=== PATIENT | female | born 2000 | race American Indian/Alaskan Native ===

== ENCOUNTER 2019-07-21 23:54 | Inpatient (IN) | payer OTHER ==
--- NOTE | 2019-07-22 00:03 | Emergency Department Report ---
ED Psych HPI - General Stated Complaint: SI/MH Time Seen by Provider: 07/21/19 23:59 Source: patient, EMS Mode of arrival: Stretcher Limitations: No Limitations - History of Present Illness Initial Comments: Patient is a 19-year-old female that presents emergency room with complaints of suicidal ideation and attempt by overdose. She states she started taking pills at 9 AM this morning. patient states she took 20 tablets of Aleve, 20 tablets of 500 mg ibuprofen, half a bottle of NyQuil, handful of Comet bathroom tube cleaner, she injected insulin unknown amount of units, and she cut her wrist. Patient states she was depressed and she wanted to end her life. Patient states she is having some nausea. Patient denies any other pain. Patient states she is depressed and anxious. Patient denies homicidal ideations. Patient denies hallucinations. MD Complaint: suicidal ideation, feels depressed, other -: Sudden Associated Psychiatric Symptoms: depression, suicidal ideation, racing thoughts History of same: Yes Quality: constant Improves With: none Worsens With: none Treatments Prior to Arrival: placed on mental he If Self Harm: admits thoughts of, has plan, has acted on plan, intentional overdose, other - Related Data Allergies Allergy/AdvReac Type Severity Reaction Status Date / Time No Known Drug Allergies Allergy Unknown Verified 07/22/19 00:22 ED Review of Systems ROS: Stated complaint: SI/MH Other details as noted in HPI Constitutional: denies: chills, fever Eyes: denies: eye pain, eye discharge, vision change ENT: denies: ear pain, throat pain Respiratory: denies: cough, shortness of breath, wheezing Cardiovascular: denies: chest pain, palpitations Endocrine: no symptoms reported Gastrointestinal: denies: abdominal pain, nausea, diarrhea Genitourinary: denies: urgency, dysuria, discharge Musculoskeletal: denies: back pain, joint swelling, arthralgia Skin: denies: rash, lesions Neurological: denies: headache, weakness, paresthesias Psychiatric: anxiety, depression, suicidal thoughts Hematological/Lymphatic: denies: easy bleeding, easy bruising ED Past Medical Hx - Past Medical History Previous Medical History?: Yes Hx Psychiatric Treatment: Yes - Surgical History Past Surgical History?: Yes - Family History Family history: no significant - Social History Smoking Status: Never Smoker Substance Use Type: None ED Physical Exam - General Limitations: No Limitations General appearance: alert, in no apparent distress - Head Head exam: Present: atraumatic, normocephalic - Eye Eye exam: Present: normal appearance - ENT ENT exam: Present: mucous membranes moist - Neck Neck exam: Present: normal inspection - Respiratory Respiratory exam: Present: normal lung sounds bilaterally. Absent: respiratory distress - Cardiovascular Cardiovascular Exam: Present: regular rate, normal rhythm. Absent: systolic murmur, diastolic murmur, rubs, gallop - GI/Abdominal GI/Abdominal exam: Present: soft, normal bowel sounds - Rectal Rectal exam: Present: deferred - Extremities Exam Extremities exam: Present: normal inspection - Back Exam Back exam: Present: normal inspection - Neurological Exam Neurological exam: Present: alert, oriented X3 - Psychiatric Psychiatric exam: Present: depressed, suicidal ideation - Skin Skin exam: Present: warm, dry, normal color, abrasion (To left wrist). Absent: rash ED Course Vital Signs 07/22/19 00:13 Temperature 98.0 F Pulse Rate 72 Respiratory 18 Rate Blood Pressure 111/69 O2 Sat by Pulse 100 Oximetry - Reevaluation(s) Reevaluation #1: Initial evaluation done. Patient placed on a 1013. Patient also placed on a ER hold. Poison control has been contacted. Recommendations are below. 07/22/19 00:01 NEVILLE CHAUHAN Female : 2000 [facility]# [id number] 07/22/19 01:57 - Nurse Note by GIOVANI WEBSTER Acct Num: [id number] : 2000 Patient Age: 19 This nurse spoke to poison control at 0015, reviewed all the details of items pt ingested. Per their recommendations, the Motrin products in the amounts she ingested would not cause anything more than possible GI upset. The Nyquil she ingested, though it contains Acetaminophen, does not contain enough to cause toxicity. The reports of ingesting unknown amounts of Comet, household tube cleaner, the main concern would also be GI upset, continue to with symptom management as needed. The pt also reports using undisclosed amounts of insulin, which under query pt alludes that it may have been a long acting form that the family member takes, to monitor for hypoglycemia and treat with D50 if necessary. Dr. Peraza notified of conversation and laboratory results WNL. Reevaluation #2: I discussed all results with patient. I discussed plan of care with patient. Patient agrees with plan of care and admission. Patient to be admitted to the hospitalist service. 07/22/19 02:06 Reevaluation #3: Plan control called back and wants patient be treated with N-acetylcysteine and D50 for 61 blood sugar. 07/22/19 02:19 - Consultations Consultation #1: Hospitalist consulted for admission. Hospitalist to admit patient. 07/22/19 02:07 ED Medical Decision Making - Lab Data Result diagrams: 07/22/19 00:30 07/22/19 00:30 - EKG Data -: EKG Interpreted by Me EKG shows normal: sinus rhythm, axis, intervals, QRS complexes, ST-T waves Rate: normal - Medical Decision Making Patient is a 19-year-old female that presents emergency room with complaints of suicide attempt by overdose. Patient states depression anxious. Patient states that around 9 AM this morning she started taking multiple different substances. Patient also cut her wrist. Patient was placed on a 1013 upon initial evaluation. Poison control was consulted and recommendations were received. Per the recommendations of poison control they recommended observation for 24 hours. Patient admitted to the hospitalist service. Patient's labs are essentially unremarkable. - Differential Diagnosis Overdose, suicide attempt, depression, suicidal ideations Critical Care Time: Yes Critical care time in (mins) excluding proc time.: 35 Critical care attestation.: If time is entered above; I have spent that time in minutes in the direct care of this critically ill patient, excluding procedure time. Critical Care Time: 35 minutes ED Disposition Clinical Impression: Suicide attempt, Wrist abrasion, non-infected, Self-inflicted laceration of left wrist, Methamphetamine abuse Overdose Qualifiers: Encounter type: initial encounter Injury intent: intentional self-harm Qualified Code(s): T50.902A - Poisoning by unspecified drugs, medicaments and biological substances, intentional self-harm, initial encounter Depression Qualifiers: Depression Type: unspecified Qualified Code(s): F32.9 - Major depressive disorder, single episode, unspecified UTI (urinary tract infection) Qualifiers: Urinary tract infection type: acute cystitis Hematuria presence: with hematuria Qualified Code(s): N30.01 - Acute cystitis with hematuria Overdose by acetaminophen Qualifiers: Encounter type: initial encounter Injury intent: intentional self-harm Qualified Code(s): T39.1X2A - Poisoning by 4-Aminophenol derivatives, intentional self-harm, initial encounter Disposition: DC-09 OP ADMIT IP TO THIS HOSP Is pt being admited?: Yes Does the pt Need Aspirin: No Condition: Critical Time of Disposition: 02:09
[2019-07-22] MEDS ORDERED: SODIUM CHLORIDE 0.9% 1000 ML 1,000 ML IV ONE (00:08)
[2019-07-22 00:48] LABS: Basophils % (Auto) 0.4 % (0.0-1.8); Eosinophils % (Auto) 0.1 % (0.0-4.3); Hematocrit 35.9 % (30.3-42.9); Hemoglobin 11.9 gm/dl (10.1-14.3); Lymphocytes # (Auto) 1.3 K/mm3 (1.2-5.4); Mean Corpuscular HGB Conc 33 % (30-34); Mean Corpuscular Volume 87 fl (79-97); Monocytes # (Auto) 0.5 K/mm3 (0.0-0.8); Monocytes % (Auto) 5.5 % (0.0-7.3); Platelet Count 353 K/mm3 (140-440); Red Blood Count 4.15 M/mm3 (3.65-5.03); Red Cell Distribution Width 14.7 % (13.2-15.2)
[2019-07-22 00:54] LABS: Bilirubin,Urine MOD (Negative); Blood,Urine NEG (Negative); Color,Urine Yellow (Yellow); Mucus,Urine 3+ /HPF; Urobilinogen,Urine < 2.0 mg/dL (<2.0)
[2019-07-22 01:00] LABS: Benzodiazepines Screen,Urine PRESUMPTIVE NEGATIVE; Cocaine Screen,Urine PRESUMPTIVE NEGATIVE; Methadone Screen,Urine PRESUMPTIVE NEGATIVE; Opiate Screen,Urine PRESUMPTIVE NEGATIVE
[2019-07-22 01:14] LABS: Ictotest,Urine Negative (Negative)
[2019-07-22 01:14] LABS: Alanine Aminotransferase 13 units/L (7-56); Albumin 4.5 g/dL (3.9-5); BUN/Creatinine Ratio 15; Blood Urea Nitrogen 12 mg/dL (7-17); Hemolysis Index 6
[2019-07-22 01:20] LABS: Amphetamine Screen,Urine PRESUMPTIVE POSITIVE; Cannabinoid Screen,Urine PRESUMPTIVE POSITIVE
[2019-07-22] MEDS ORDERED: DEXTROSE 50% IN WATER (25GM) 50 ML SYRINGE IV ONE (02:16)
[2019-07-22] MEDS ORDERED: ONDANSETRON 4 MG/2 ML INJ IV PRN (03:05)
[2019-07-22] MEDS ORDERED: ACETAMINOPHEN 325 MG TAB PO PRN (03:05)
[2019-07-22] MEDS ORDERED: POTASSIUM CHLORIDE ER 20 MEQ TAB PO ONE (03:12)
[2019-07-22] MEDS ORDERED: DEXTROSE 5% IV ONE ×3 (03:15→08:30)
[2019-07-22] MEDS ORDERED: ACETADOTE IV ONE ×3 (03:15→08:30)
[2019-07-22] MEDS ORDERED: WATER IV ONE ×3 (03:15→08:30)
--- NOTE | 2019-07-22 03:19 | History and Physical Report ---
History of Present Illness History of present illness: 19-year-old woman with no medical problem comes emergency room for evaluation. He states that she took several different pills in an attempt to kill herself because there is nothing worth living for. She took 20 tablets of 250 mg Aleve, 20 tablets of 500 mg ibuprofen, half a bottle of NyQuil, a handful of comet, unknown amount of insulin and she slit her wrist. Patient stated that she wanted to kill herself since March, however she met a friend and they decided that they were going to be roommates inand move in together in July. However she found out today that her boyfriend did not want to move in together and she subsequently took oral globe pills between 7 to5 PM. Patient will be admitted for drug overdose, suicide attempt Review Of Systems: Constitutional: no weight loss, fever, chills Ears, eyes, nose, mouth and throat: no nasal congestion, no nasal discharge, no sinus pressure, blurry vision, diplopia Neck: No neck pain or rigidity. Cardiovascular: No palpitations, chest pain Respiratory: No shortness of breath, cough Gastrointestinal: No hematochezia Genitourinary : no dysuria, frequency Musculoskeletal: no muscle ache , joint pain Integumentary: no rash, no pruritis Neurological: no parathesias, focal weakness Endocrine: no cold or heat intolerance, no polyuria or polydipsia Hematologic/Lymphatic: no easy bruising, no easy bleeding, no gland swelling Allergic/Immunologic: no urticaria, no angioedema. PAST MEDICAL HISTORY: None PAST SURGICAL HISTORY: None SOCIAL HISTORY: Denies alcohol, tobacco, + marijuana FAMILY HISTORY: Hypertension Medications and Allergies Allergies Allergy/AdvReac Type Severity Reaction Status Date / Time No Known Drug Allergies Allergy Unknown Verified 07/22/19 00:22 Active Meds: Active Medications Acetaminophen (Tylenol) 650 mg PO Q4H PRN PRN Reason: Pain MILD(1-3)/Fever >100.5/CHARLES Enoxaparin Sodium (Enoxaparin) 30 mg SUB-Q QDAY MICHAEL Dextrose/Sodium Chloride (D5/0.45ns) 1,000 mls @ 125 mls/hr IV DIRECT MICHAEL Acetylcysteine 9,600 mg/ (Dextrose) 248 mls @ 200 mls/hr IV ONCE ONE Stop: 07/22/19 04:29 Acetylcysteine 3,000 mg/ (Dextrose) 515 mls @ 125 mls/hr IV ONCE ONE Stop: 07/22/19 08:07 Acetylcysteine 6,400 mg/ (Dextrose) 1,032 mls @ 62.5 mls/hr IV ONCE ONE Stop: 07/23/19 00:07 Ondansetron HCl (Zofran) 4 mg IV Q8H PRN PRN Reason: Nausea And Vomiting Potassium Chloride (K-Dur) 40 meq PO ONCE ONE Stop: 07/22/19 03:13 Sodium Chloride (Sodium Chloride Flush Syringe 10 Ml) 10 ml IV BID MICHAEL Sodium Chloride (Sodium Chloride Flush Syringe 10 Ml) 10 ml IV PRN PRN PRN Reason: LINE FLUSH Exam - Physical Exam Narrative exam: Gen. appearance: Patient lying in bed, no apparent distress HEENT: Normocephalic, atraumatic, pupils equally round and reactive to light, extraocular movement intact, and no sclericterus,. No JVD or thyromegaly or nodule,neck supple, no carotid bruit ,mucous membranes moist, no exudate or erythema Heart: S1, S2, regular rate and rhythm Lungs: Clear bilaterally, breathing comfortable Abdomen: Positive bowel sounds, nontender, nondistended, no organomegaly Extremity: Laceration to wrist no edema, cyanosis, clubbing Skin: No rash, nodules, warm, dry Neuro: Cranial nerves II to XII intact, speech is fluent, moves extremities, sensory intact - Constitutional Vitals: Temp Pulse Resp BP Pulse Ox 98.0 F 66 19 113/63 100 07/22/19 00:13 07/22/19 03:00 07/22/19 03:00 07/22/19 03:00 07/22/19 03:00 Results - Labs CBC & Chem 7: 07/22/19 03:47 07/22/19 03:47 Labs: Abnormal lab results 07/22/19 07/22/19 07/22/19 Range/Units 00:30 00:30 00:30 Lymph % (Auto) 13.0 L (13.4-35.0) % Seg Neutrophils % 81.0 H (40.0-70.0) % Seg Neutrophils # 7.9 H (1.8-7.7) K/mm3 Potassium 3.2 L (3.6-5.0) mmol/L Glucose 61 L (65-100) mg/dL POC Glucose (70-105) Ur Specific [place] (1.003-1.030) Urine WBC (Auto) (0.0-6.0) /HPF Salicylates < 0.3 L (2.8-20.0) mg/dL 07/22/19 07/22/19 07/22/19 Range/Units 00:31 00:50 02:34 Lymph % (Auto) (13.4-35.0) % Seg Neutrophils % (40.0-70.0) % Seg Neutrophils # (1.8-7.7) K/mm3 Potassium (3.6-5.0) mmol/L Glucose (65-100) mg/dL POC Glucose 61 L 45 L (70-105) Ur Specific [place] 1.042 H (1.003-1.030) Urine WBC (Auto) 30.0 H (0.0-6.0) /HPF Salicylates (2.8-20.0) mg/dL Assessment and Plan Assessment Drug overdose/suicide attempt Start IV fluids, Mucomyst infusion Poison control was contacted Monitor Tylenol level, PT/INR Consult psych, patient is 1013 Urinary tract infection Start IV Rocephin, follow culture Replete potassium level DVT prophylaxis
[2019-07-22] MEDS: D5W/0.45% NACL 1,000 ML IV SCH ×2 (03:33→22:53)
[2019-07-22] MEDS: cefTRIAXone/NS 1 GM/50 ML 1 GM/50 ML BAG IV SCH (03:40)
[2019-07-22 04:14] LABS: Basophils % (Auto) 0.3 % (0.0-1.8); Eosinophils % (Auto) 0.3 % (0.0-4.3); Hemoglobin 11.6 gm/dl (10.1-14.3); INR 1.18 (0.87-1.13); Lymphocytes # (Auto) 1.3 K/mm3 (1.2-5.4); Lymphocytes % (Auto) 15.5 % (13.4-35.0); Mean Corpuscular HGB Conc 33 % (30-34); Mean Corpuscular Volume 87 fl (79-97); Monocytes # (Auto) 0.6 K/mm3 (0.0-0.8); Monocytes % (Auto) 6.9 % (0.0-7.3); Partial Thromboplastin Time 25.8 Sec. (24.2-36.6); Platelet Count 317 K/mm3 (140-440); Red Blood Count 4.01 M/mm3 (3.65-5.03); Red Cell Distribution Width 14.2 % (13.2-15.2)
[2019-07-22 04:16] LABS: BUN/Creatinine Ratio 14; Blood Urea Nitrogen 10 mg/dL (7-17); Calcium 8.5 mg/dL (8.4-10.2); Hemolysis Index 6
[2019-07-22 08:09] LABS: INR 2.02 (0.87-1.13)
[2019-07-22 08:10] LABS: Partial Thromboplastin Time 30.9 Sec. (24.2-36.6)
[2019-07-22] MEDS ORDERED: ENOXAPARIN 30 MG/0.3 ML INJ SUB-Q SCH (10:00)
[2019-07-22] MEDS: ENOXAPARIN 40 MG/0.4 ML INJ SUB-Q SCH (11:12)
[2019-07-22 11:19] LABS: INR 1.42 (0.87-1.13)
[2019-07-22 11:20] LABS: Partial Thromboplastin Time 27.4 Sec. (24.2-36.6)
[2019-07-22 14:21] LABS: Alanine Aminotransferase 13 units/L (7-56); Albumin 3.8 g/dL (3.9-5)
[2019-07-22 14:35] LABS: Bilirubin,Direct < 0.2 mg/dL (0-0.2)
--- NOTE | 2019-07-22 15:11 | Event Note ---
Date: 07/22/19 Patient with polysubstance abuse, multiple drug overdose, suicidal. I have seen and examined her.
[2019-07-22] MEDS ORDERED: FLU VACC QUAD 2019-20 (3 YR UP)/PF 60 MCG/0.5 ML SYRINGE IM ONE (17:16)
[2019-07-22 23:49] LABS: Hematocrit 34.9 % (30.3-42.9); Hemoglobin 11.4 gm/dl (10.1-14.3); Mean Corpuscular HGB Conc 33 % (30-34); Mean Corpuscular Volume 87 fl (79-97); Platelet Count 314 K/mm3 (140-440); Red Blood Count 4.01 M/mm3 (3.65-5.03); Red Cell Distribution Width 14.7 % (13.2-15.2)
[2019-07-22 23:52] LABS: Alanine Aminotransferase 12 units/L (7-56); BUN/Creatinine Ratio 14; Blood Urea Nitrogen 10 mg/dL (7-17); Hemolysis Index 11
[2019-07-22 23:57] LABS: INR 1.18 (0.87-1.13); Partial Thromboplastin Time 23.3 Sec. (24.2-36.6)
[2019-07-23] MEDS: cefTRIAXone/NS 1 GM/50 ML 1 GM/50 ML BAG IV SCH (05:02)
--- NOTE | 2019-07-23 07:34 | Consultation ---
History of Present Illness - Reason for Consult Consult date: 07/23/19 Reason for consult: overdose - History of Present Psychiatric Illness Cindy Chiu is a 19y/o female patient who states she was admitted into the hospital for an overdose. During my interview with the patient, she is lying in bed. She is a/o x 3. She makes fair eye contact. Her affect is restricted. The patient states, "I tried to kill myself. I don't have nothing to live for." She denies having a plan. She then states, "I failed at killing myself, I don't know what will happen out there." The patient describes her mood as "like crap." She then says, "I'm apathetic right now." She states she tried to commit suicide "three times in the past." She denies seeing a psychiatrist in "the past two years." She denies being on any psych medications at this time, but says in the past she was diagnosed with "depression, autism, and anxiety." The patient could not recall any past medications. The patient denies hallucinations of any kind. She admits to using "marijuana" but denies any other illicit drugs. She also denies alcohol or nicotine use. She states she "doesn't sleep well" and states her appetites is "very good." PAST PSYCHIATRIC HISTORY: Diagnoses: Depression, anxiety, autism Suicide attempts or Self-harm behavior: Three times Prior psychiatric hospitalizations: once Substance Abuse history: Marijuana Previous psychiatric medications tried: Denies Outpatient treatment: not in two years PAST MEDICAL HISTORY: None reported Family Psychiatric History: None reported or documented SOCIAL HISTORY Current living status: With grandmother Employment status: Employed Highest level of education: High school graduate Marital status: Single Legal history: Denies History of abuse: Marijuana REVIEW OF SYSTEMS Constitutional: Negative for weight loss ENT: Negative for stridor Respiratory: Negative for cough or hemoptysis All other systems reviewed and are negative MENTAL STATUS EXAMINATION General Appearance: Dressed appropriately Behavior: Calm, cooperative. Fair eye contact Mood: "apathetic" Affect: Restricted Speech: Normal tone and pace Thought Process: Goal directed Thought Content: Suicidal Ideation: Yes Homicidal Ideation: Denies Hallucinations: Denies Delusions: Denies Insight and Judgment: Limited Memory/Cognition: Limited Assessment Major Depressive Disorder, Severe, w/o Psychotic Features MEDICATIONS: Zoloft 25mg po daily Seroquel 50mg po qhs Risks, benefits and alternatives of medications discussed with the patient, questions answered and consent obtained from patient. PSYCHOTHERAPY: Supportive psychotherapy provided MEDICAL: Per primary team DELIRIUM PRECAUTIONS: Please re-orient patient frequently, keep lights on during the day, and minimize benzodiazepines and opiates as these medications could worsen patient's confusion. SEWING SUPERVISOR: Per Medical Team DISPOSITION: The patient meets the requirement for acute inpatient psychiatric treatment. She may transfer to an acute psychiatric facility once medically anaid red. The plan was discussed with the patient, including medication benefits and possible side effects. she verbalized agreement and understanding Will continue to follow until the patient is improved enough for discharge or transferred. Thank you for the consult. Please contact with any questions and/or concerns. Medications and Allergies Allergies Allergy/AdvReac Type Severity Reaction Status Date / Time No Known Drug Allergies Allergy Unknown Verified 07/22/19 00:22 Home Medications Medication Instructions Recorded Confirmed Last Taken Type No Known Home Medications [No 07/22/19 07/22/19 Unknown History Reported Home Medications] Active Meds: Active Medications Acetaminophen (Tylenol) 650 mg PO Q4H PRN PRN Reason: Pain MILD(1-3)/Fever >100.5/CHARLES Enoxaparin Sodium (Enoxaparin) 40 mg SUB-Q QDAY@1000 [facility] Last Admin: 07/22/19 11:12 Dose: Not Given Documented by: Dextrose/Sodium Chloride (D5/0.45ns) 1,000 mls @ 125 mls/hr IV DIRECT [facility] Last Admin: 07/22/19 22:53 Dose: 125 mls/hr Documented by: Ceftriaxone Sodium (Rocephin/Ns 1 Gm/50 Ml) 1 gm in 50 mls @ 100 mls/hr IV Q24HR@0600 [facility]; Protocol Last Admin: 07/23/19 05:02 Dose: 100 mls/hr Documented by: Ondansetron HCl (Zofran) 4 mg IV Q8H PRN PRN Reason: Nausea And Vomiting Sodium Chloride (Sodium Chloride Flush Syringe 10 Ml) 10 ml IV BID [facility] Last Admin: 07/22/19 22:51 Dose: 10 ml Documented by: Sodium Chloride (Sodium Chloride Flush Syringe 10 Ml) 10 ml IV PRN PRN PRN Reason: LINE FLUSH Mental Status Exam - Vital signs Last Vital Signs Temp 98.7 F 07/23/19 05:06 Pulse 79 07/23/19 05:06 Resp 16 07/23/19 05:06 BP 103/67 07/23/19 05:06 Pulse Ox 99 07/23/19 05:06 Results Result Diagrams: 07/22/19 23:02 07/22/19 23:02 Abnormal lab results 07/22/19 07/22/19 07/22/19 Range/Units 07:24 07:24 08:47 PT 22.8 H (12.2-14.9) Sec. INR 2.02 H (0.87-1.13) APTT (24.2-36.6) Sec. Glucose (65-100) mg/dL POC Glucose 126 H (70-105) Total Protein (6.3-8.2) g/dL Albumin (3.9-5) g/dL Acetaminophen < 5.0 L (10.0-30.0) ug/mL 07/22/19 07/22/19 07/22/19 Range/Units 10:36 10:36 11:00 PT 17.4 H (12.2-14.9) Sec. INR 1.42 H (0.87-1.13) APTT (24.2-36.6) Sec. Glucose (65-100) mg/dL POC Glucose 115 H (70-105) Total Protein (6.3-8.2) g/dL Albumin (3.9-5) g/dL Acetaminophen < 5.0 L (10.0-30.0) ug/mL 07/22/19 07/22/19 07/22/19 Range/Units 13:34 14:11 18:04 PT (12.2-14.9) Sec. INR (0.87-1.13) APTT (24.2-36.6) Sec. Glucose (65-100) mg/dL POC Glucose 111 H 108 H (70-105) Total Protein 5.9 L D (6.3-8.2) g/dL Albumin 3.8 L (3.9-5) g/dL Acetaminophen (10.0-30.0) ug/mL 07/22/19 07/22/19 07/22/19 Range/Units 23:02 23:02 23:02 PT (12.2-14.9) Sec. INR 1.18 H (0.87-1.13) APTT 23.3 L (24.2-36.6) Sec. Glucose 101 H (65-100) mg/dL POC Glucose (70-105) Total Protein (6.3-8.2) g/dL Albumin (3.9-5) g/dL Acetaminophen < 5.0 L (10.0-30.0) ug/mL All other labs normal.
[2019-07-23] MEDS: D5W/0.45% NACL 1,000 ML IV SCH (09:30)
[2019-07-23] MEDS: ENOXAPARIN 40 MG/0.4 ML INJ SUB-Q SCH (09:31)
[2019-07-23] MEDS ORDERED: SERTRALINE 25 MG TAB PO SCH (10:00)
--- NOTE | 2019-07-23 10:46 | Event Note ---
Date: 07/23/19 Patient medically cleared for discharge to [facility] facility.
--- NOTE | 2019-07-23 10:46 | Progress Note ---
Assessment and Plan Assessment and plan: Drug overdose/suicide attempt Start IV fluids, Completed Mucomyst infusion Poison control was contacted Monitor Tylenol level, PT/INR Consulted psych, following. Patient is 1013 status has 1:1 sitter Urinary tract infection Start Ceftin Stop IV Rocephin, follow culture Hypokalemia Repleted potassium level DVT prophylaxis She is currently awake,,alert, medically stable to discharge to Psych facility History Interval history: patient presented with suicidal attempt by drug overdose Hospitalist Physical - Physical exam Narrative exam: GEN: Not in acute distress, lying in bed HEENT: Normocephalic, atraumatic, Neck: supple, No JVD Lungs: Clear, no crackles, no wheeze heart;S1 and S2 reg, no murmurs, rubs or gallop Abd:soft, non tender, non distended, normal bowel sounds, Ext: No edema, no clubbing, no cyanosis, Neuro: Awake,alert,oriented X3 , no focal signs, Psych:calm,suicidal - Constitutional Vitals: Temp Pulse Resp BP Pulse Ox 98.4 F 84 18 115/77 99 07/23/19 08:08 07/23/19 08:08 07/23/19 08:08 07/23/19 08:08 07/23/19 08:08 Results - Labs CBC & Chem 7: 07/22/19 23:02 07/22/19 23:02 Labs: Laboratory Last Values WBC 8.0 K/mm3 (4.5-11.0) 07/22/19 23:02 RBC 4.01 M/mm3 (3.65-5.03) 07/22/19 23:02 Hgb 11.4 gm/dl (10.1-14.3) 07/22/19 23:02 Hct 34.9 % (30.3-42.9) 07/22/19 23:02 MCV 87 fl (79-97) 07/22/19 23:02 MCH 28 pg (28-32) 07/22/19 23:02 MCHC 33 % (30-34) 07/22/19 23:02 RDW 14.7 % (13.2-15.2) 07/22/19 23:02 Plt Count 314 K/mm3 (140-440) 07/22/19 23:02 Lymph % (Auto) 15.5 % (13.4-35.0) 07/22/19 03:47 [place] % (Auto) 6.9 % (0.0-7.3) 07/22/19 03:47 Eos % (Auto) 0.3 % (0.0-4.3) 07/22/19 03:47 Baso % (Auto) 0.3 % (0.0-1.8) 07/22/19 03:47 Lymph # 1.3 K/mm3 (1.2-5.4) 07/22/19 03:47 [place] # 0.6 K/mm3 (0.0-0.8) 07/22/19 03:47 Eos # 0.0 K/mm3 (0.0-0.4) 07/22/19 03:47 Baso # 0.0 K/mm3 (0.0-0.1) 07/22/19 03:47 Seg Neutrophils % 77.0 % (40.0-70.0) H 07/22/19 03:47 Seg Neutrophils # 6.5 K/mm3 (1.8-7.7) 07/22/19 03:47 PT 14.8 Sec. (12.2-14.9) 07/22/19 23:02 INR 1.18 (0.87-1.13) H 07/22/19 23:02 APTT 23.3 Sec. (24.2-36.6) L 07/22/19 23:02 Sodium 140 mmol/L (137-145) 07/22/19 23:02 Potassium 4.5 mmol/L (3.6-5.0) 07/22/19 23:02 Chloride 103.5 mmol/L (98-107) 07/22/19 23:02 Carbon Dioxide 24 mmol/L (22-30) 07/22/19 23:02 Anion Gap 17 mmol/L 07/22/19 23:02 BUN 10 mg/dL (7-17) 07/22/19 23:02 Creatinine 0.7 mg/dL (0.7-1.2) 07/22/19 23:02 Estimated GFR > 60 ml/min 07/22/19 23:02 BUN/Creatinine Ratio 14 % 07/22/19 23:02 Glucose 101 mg/dL (65-100) H 07/22/19 23:02 POC Glucose 108 (70-105) H 07/22/19 18:04 Calcium 9.0 mg/dL (8.4-10.2) 07/22/19 23:02 Total Bilirubin 0.20 mg/dL (0.1-1.2) 07/22/19 23:02 Direct Bilirubin < 0.2 mg/dL (0-0.2) 07/22/19 13:34 Indirect Bilirubin 0.1 mg/dL 07/22/19 13:34 AST 11 units/L (5-40) 07/22/19 23:02 ALT 12 units/L (7-56) 07/22/19 23:02 Alkaline Phosphatase 42 units/L (35-129) 07/22/19 23:02 Lactate Dehydrogenase 160 units/L (91-180) 07/22/19 13:34 Total Protein 6.6 g/dL (6.3-8.2) 07/22/19 23:02 Albumin 4.0 g/dL (3.9-5) 07/22/19 23:02 Albumin/Globulin Ratio 1.5 % 07/22/19 23:02 TSH 1.120 mlU/mL (0.270-4.200) 07/22/19 00:30 HCG, Qual Negative (Negative) 07/22/19 00:30 Urine Color Yellow (Yellow) 07/22/19 00: Urine Turbidity Clear (Clear) 07/22/19 00: Urine pH 5.0 (5.0-7.0) 07/22/19 00:31 Ur Specific [place] 1.042 (1.003-1.030) H 07/22/19 00:31 Urine Protein 30 mg/dl mg/dL (Negative) 07/22/19 00: Urine Glucose (UA) Neg mg/dL (Negative) 07/22/19 00: Urine Ketones Tr mg/dL (Negative) 07/22/19 00: Urine Blood Neg (Negative) 07/22/19 00: Urine Nitrite Neg (Negative) 07/22/19 00: Urine Bilirubin Mod (Negative) 07/22/19 00: Urine Ictotest Negative (Negative) 07/22/19 00: Urine Urobilinogen < 2.0 mg/dL (<2.0) 07/22/19 00:31 Ur Leukocyte Esterase Mod (Negative) 07/22/19 00:31 Urine WBC (Auto) 30.0 /HPF (0.0-6.0) H 07/22/19 00:31 Urine RBC (Auto) 7.0 /HPF (0.0-6.0) 07/22/19 00:31 U Epithel Cells (Auto) 7.0 /HPF (0-13.0) 07/22/19 00:31 Urine Mucus 3+ /HPF 07/22/19 00:31 Salicylates < 0.3 mg/dL (2.8-20.0) L 07/22/19 00:30 Urine Opiates Screen Presumptive negative 07/22/19 00:31 Urine Methadone Screen Presumptive negative 07/22/19 00:31 Acetaminophen < 5.0 ug/mL (10.0-30.0) L 07/22/19 23:02 Ur Barbiturates Screen Presumptive negative 07/22/19 00:31 Ur Phencyclidine Scrn Presumptive negative 07/22/19 00:31 Ur Amphetamines Screen Presumptive positive 07/22/19 00:31 U Benzodiazepines Scrn Presumptive negative 07/22/19 00:31 Urine Cocaine Screen Presumptive negative 07/22/19 00:31 U Marijuana (THC) Screen Presumptive positive 07/22/19 00:31 Drugs of Abuse Note Disclamer 07/22/19 00:31 Plasma/Serum Alcohol < 0.01 % (0-0.07) 07/22/19 00:30 Hartmann/IV: Voiding Method Toilet IV Catheter Type [Left Hand] INT / Saline Lock Active Medications - Current Medications Current Medications: Generic Name Dose Route Start Last Admin Trade Name Freq PRN Reason Stop Dose Admin Acetaminophen 650 mg 07/22/19 03:05 Tylenol PO Q4H PRN Pain MILD(1-3)/Fever >100.5/CHARLES Enoxaparin Sodium 40 mg 07/22/19 10:00 07/23/19 09:31 Enoxaparin SUB-Q 40 mg QDAY@1000 [facility] Administration Ceftriaxone Sodium 1 gm in 50 mls @ 100 mls/hr 07/22/19 03:13 07/23/19 05:02 Rocephin/Ns 1 Gm/50 Ml IV 100 mls/hr Q24HR@0600 [facility] Administration Protocol Ondansetron HCl 4 mg 07/22/19 03:05 Zofran IV Q8H PRN Nausea And Vomiting Quetiapine Fumarate 50 mg 07/23/19 22:00 Seroquel PO QHS MICHAEL Sertraline HCl 25 mg 07/23/19 10:00 07/23/19 09:31 Zoloft PO 25 mg QDAY MICHAEL Administration Sodium Chloride 10 ml 07/22/19 10:00 07/23/19 09:31 Sodium Chloride Flush Syringe 10 Ml IV 10 ml BID MICHAEL Administration Sodium Chloride 10 ml 07/22/19 03:05 Sodium Chloride Flush Syringe 10 Ml IV PRN PRN LINE FLUSH
--- NOTE | 2019-07-23 10:50 | Discharge Summary ---
Providers - Providers Date of Admission: 07/22/19 03:05 Date of discharge: 07/23/19 Attending physician: MAXWELL HESS 07/22/19 03:22 psychiatry consult [Consult to Mental Health] [CONS] Routine Reason For Exam: SUIcide attempt 07/22/19 15:43 Consult to Mental Health [CONS] Routine Reason For Exam: suicidal Primary care physician: ELEMENTARY EDUCATOR Hospitalization Condition: Fair Disposition: DC-01 TO HOME OR SELFCARE Core Measure Documentation - Palliative Care Palliative Care/ Comfort Measures: Not Applicable - Core Measures Any of the following diagnoses?: none Exam - Constitutional Vitals: Temp Pulse Resp BP Pulse Ox 98.4 F 84 18 115/77 99 07/23/19 08:08 07/23/19 08:08 07/23/19 08:08 07/23/19 08:08 07/23/19 08:08 Plan Diet: regular Follow up with: PRIMARY CAREMD [Primary Care Provider] - 7 Days
[2019-07-23] MEDS: QUEtiapine 25 MG TAB PO SCH (22:46)
--- NOTE | 2019-07-24 08:39 | Progress Note ---
Assessment and Plan Assessment and plan: Drug overdose/suicide attempt Start IV fluids, Completed Mucomyst infusion Poison control was contacted Monitor Tylenol level, PT/INR Consulted psych, following. Patient is 1013 status has 1:1 sitter Urinary tract infection Start Ceftin Stop IV Rocephin, follow culture Hypokalemia Repleted potassium level DVT prophylaxis She is currently awake,,alert, medically stable to discharge to Psych facility 07/24/2019 Patient with suicidal attempt by drug overdose. She is medically stable for discharge to inpatient Psych History Interval history: patient presented with suicidal attempt by drug overdose Hospitalist Physical - Physical exam Narrative exam: GEN: Not in acute distress, lying in bed HEENT: Normocephalic, atraumatic, Neck: supple, No JVD Lungs: Clear, no crackles, no wheeze heart;S1 and S2 reg, no murmurs, rubs or gallop Abd:soft, non tender, non distended, normal bowel sounds, Ext: No edema, no clubbing, no cyanosis, Neuro: Awake,alert,oriented X3 , no focal signs, Psych:calm,suicidal - Constitutional Vitals: Temp Pulse Resp BP Pulse Ox 98.6 F 98 H 12 109/78 98 07/24/19 08:16 07/24/19 08:16 07/24/19 08:16 07/24/19 08:16 07/24/19 08:16 Results - Labs CBC & Chem 7: 07/22/19 23:02 07/22/19 23:02 Labs: Laboratory Last Values WBC 8.0 K/mm3 (4.5-11.0) 07/22/19 23:02 RBC 4.01 M/mm3 (3.65-5.03) 07/22/19 23:02 Hgb 11.4 gm/dl (10.1-14.3) 07/22/19 23:02 Hct 34.9 % (30.3-42.9) 07/22/19 23:02 MCV 87 fl (79-97) 07/22/19 23:02 MCH 28 pg (28-32) 07/22/19 23:02 MCHC 33 % (30-34) 07/22/19 23:02 RDW 14.7 % (13.2-15.2) 07/22/19 23:02 Plt Count 314 K/mm3 (140-440) 07/22/19 23:02 Lymph % (Auto) 15.5 % (13.4-35.0) 07/22/19 03:47 [place] % (Auto) 6.9 % (0.0-7.3) 07/22/19 03:47 Eos % (Auto) 0.3 % (0.0-4.3) 07/22/19 03:47 Baso % (Auto) 0.3 % (0.0-1.8) 07/22/19 03:47 Lymph # 1.3 K/mm3 (1.2-5.4) 07/22/19 03:47 [place] # 0.6 K/mm3 (0.0-0.8) 07/22/19 03:47 Eos # 0.0 K/mm3 (0.0-0.4) 07/22/19 03:47 Baso # 0.0 K/mm3 (0.0-0.1) 07/22/19 03:47 Seg Neutrophils % 77.0 % (40.0-70.0) H 07/22/19 03:47 Seg Neutrophils # 6.5 K/mm3 (1.8-7.7) 07/22/19 03:47 PT 14.8 Sec. (12.2-14.9) 07/22/19 23:02 INR 1.18 (0.87-1.13) H 07/22/19 23:02 APTT 23.3 Sec. (24.2-36.6) L 07/22/19 23:02 Sodium 140 mmol/L (137-145) 07/22/19 23:02 Potassium 4.5 mmol/L (3.6-5.0) 07/22/19 23:02 Chloride 103.5 mmol/L (98-107) 07/22/19 23:02 Carbon Dioxide 24 mmol/L (22-30) 07/22/19 23:02 Anion Gap 17 mmol/L 07/22/19 23:02 BUN 10 mg/dL (7-17) 07/22/19 23:02 Creatinine 0.7 mg/dL (0.7-1.2) 07/22/19 23:02 Estimated GFR > 60 ml/min 07/22/19 23:02 BUN/Creatinine Ratio 14 % 07/22/19 23:02 Glucose 101 mg/dL (65-100) H 07/22/19 23:02 POC Glucose 108 (70-105) H 07/22/19 18:04 Calcium 9.0 mg/dL (8.4-10.2) 07/22/19 23:02 Total Bilirubin 0.20 mg/dL (0.1-1.2) 07/22/19 23:02 Direct Bilirubin < 0.2 mg/dL (0-0.2) 07/22/19 13:34 Indirect Bilirubin 0.1 mg/dL 07/22/19 13:34 AST 11 units/L (5-40) 07/22/19 23:02 ALT 12 units/L (7-56) 07/22/19 23:02 Alkaline Phosphatase 42 units/L (35-129) 07/22/19 23:02 Lactate Dehydrogenase 160 units/L (91-180) 07/22/19 13:34 Total Protein 6.6 g/dL (6.3-8.2) 07/22/19 23:02 Albumin 4.0 g/dL (3.9-5) 07/22/19 23:02 Albumin/Globulin Ratio 1.5 % 07/22/19 23:02 TSH 1.120 mlU/mL (0.270-4.200) 07/22/19 00:30 HCG, Qual Negative (Negative) 07/22/19 00:30 Urine Color Yellow (Yellow) 07/22/19 00:31 Urine Turbidity Clear (Clear) 07/22/19 00:31 Urine pH 5.0 (5.0-7.0) 07/22/19 00:31 Ur Specific [place] 1.042 (1.003-1.030) H 07/22/19 00:31 Urine Protein 30 mg/dl mg/dL (Negative) 07/22/19 00:31 Urine Glucose (UA) Neg mg/dL (Negative) 07/22/19 00: Urine Ketones Tr mg/dL (Negative) 07/22/19 00: Urine Blood Neg (Negative) 07/22/19 00: Urine Nitrite Neg (Negative) 07/22/19 00: Urine Bilirubin Mod (Negative) 07/22/19 00: Urine Ictotest Negative (Negative) 07/22/19 00:31 Urine Urobilinogen < 2.0 mg/dL (<2.0) 07/22/19 00:31 Ur Leukocyte Esterase Mod (Negative) 07/22/19 00:31 Urine WBC (Auto) 30.0 /HPF (0.0-6.0) H 07/22/19 00:31 Urine RBC (Auto) 7.0 /HPF (0.0-6.0) 07/22/19 00:31 U Epithel Cells (Auto) 7.0 /HPF (0-13.0) 07/22/19 00:31 Urine Mucus 3+ /HPF 07/22/19 00:31 Salicylates < 0.3 mg/dL (2.8-20.0) L 07/22/19 00:30 Urine Opiates Screen Presumptive negative 07/22/19 00:31 Urine Methadone Screen Presumptive negative 07/22/19 00:31 Acetaminophen < 5.0 ug/mL (10.0-30.0) L 07/22/19 23:02 Ur Barbiturates Screen Presumptive negative 07/22/19 00:31 Ur Phencyclidine Scrn Presumptive negative 07/22/19 00:31 Ur Amphetamines Screen Presumptive positive 07/22/19 00:31 U Benzodiazepines Scrn Presumptive negative 07/22/19 00:31 Urine Cocaine Screen Presumptive negative 07/22/19 00:31 U Marijuana (THC) Screen Presumptive positive 07/22/19 00:31 Drugs of Abuse Note Disclamer 07/22/19 00:31 Plasma/Serum Alcohol < 0.01 % (0-0.07) 07/22/19 00:30 Microbiology: Microbiology 07/22/19 00:31 Urine,Clean Catch Urine Culture - Preliminary Hartmann/IV: Voiding Method Toilet IV Catheter Type [Right INT / Saline Lock Forearm] IV Catheter Type [Left Hand] INT / Saline Lock Active Medications - Current Medications Current Medications: Generic Name Dose Route Start Last Admin Trade Name Freq PRN Reason Stop Dose Admin Acetaminophen 650 mg 07/22/19 03:05 Tylenol PO Q4H PRN Pain MILD(1-3)/Fever >100.5/CHARLES Cefuroxime Axetil 500 mg 07/23/19 22:00 07/23/19 22:26 Ceftin PO 07/28/19 21:59 500 mg Q12HR MICHAEL Administration Enoxaparin Sodium 40 mg 07/22/19 10:00 07/23/19 09:31 Enoxaparin SUB-Q 40 mg QDAY@1000 MICHAEL Administration Ondansetron HCl 4 mg 07/22/19 03:05 Zofran IV Q8H PRN Nausea And Vomiting Quetiapine Fumarate 50 mg 07/23/19 22:00 07/23/19 22:46 Seroquel PO 50 mg QHS MICHAEL Administration Sertraline HCl 25 mg 07/23/19 10:00 07/23/19 09:31 Zoloft PO 25 mg QDAY MICHAEL Administration Sodium Chloride 10 ml 07/22/19 10:00 07/23/19 22:29 Sodium Chloride Flush Syringe 10 Ml IV 10 ml BID MICAHEL Administration Sodium Chloride 10 ml 07/22/19 03:05 Sodium Chloride Flush Syringe 10 Ml IV PRN PRN LINE FLUSH
--- NOTE | 2019-07-24 09:07 | Progress Note ---
Subjective - Reason for Consult Consult date: 07/24/19 Reason for consult: overdose - Chief Complaint Chief complaint: The patient medical record was reviewed and the patient's progress was discussed with the nursing staff. During my interview with the patient this morning, she is sitting up eating breakfast. She is a/o x 3. She makes good fair contact. A sitter is at bedside. The patient denies SI/HI, but states she's "having thoughts of dying." She describes her mood as "panicky." She states, "I thought I would be at this point so I don't know what comes next." She denies hallucinations of any kind. She says she "slept well." The patient states her appetite is "not good." REVIEW OF SYSTEMS Constitutional: Negative for weight loss ENT: Negative for stridor Respiratory: Negative for cough or hemoptysis All other systems reviewed and are negative MENTAL STATUS EXAMINATION General Appearance: Dressed appropriately Behavior: Calm, cooperative. Fair eye contact Mood: "panicky" Affect: Restricted Speech: Normal tone and pace Thought Process: Goal directed Thought Content: Suicidal Ideation: Yes, passive Homicidal Ideation: Denies Hallucinations: Denies Delusions: Denies Insight and Judgment: Limited Memory/Cognition: Limited Assessment Major Depressive Disorder, Severe, w/o Psychotic Features MEDICATIONS: D/c Zoloft 25mg po daily Start Prozac 10mg po daily Risks, benefits and alternatives of medications discussed with the patient, questions answered and consent obtained from patient. PSYCHOTHERAPY: Supportive psychotherapy provided MEDICAL: Per primary team DELIRIUM PRECAUTIONS: Please re-orient patient frequently, keep lights on during the day, and minimize benzodiazepines and opiates as these medications could worsen patient's confusion. MASK FORMER: Per Medical Team DISPOSITION: The patient meets the requirement for acute inpatient psychiatric treatment. She may transfer to an acute psychiatric facility once medically cleared. The plan was discussed with the patient, including medication benefits and possible side effects. she verbalized agreement and understanding Will continue to follow until the patient is improved enough for discharge or transferred. Thank you for the consult. Please contact with any questions and/or concerns. Mental Status Exam - Vital signs Last Vital Signs Temp 98.6 F 07/24/19 08:16 Pulse 98 H 07/24/19 08:16 Resp 12 07/24/19 08:16 BP 109/78 05/24/20 08:16 Pulse Ox 98 07/24/19 08:40
[2019-07-24] MEDS: ENOXAPARIN 40 MG/0.4 ML INJ SUB-Q SCH (10:21)
[2019-07-24] MEDS: FLUoxetine 10 MG TAB PO SCH (10:27)
[2019-07-24] MEDS: QUEtiapine 25 MG TAB PO SCH (22:40)
[2019-07-25] MEDS: ENOXAPARIN 40 MG/0.4 ML INJ SUB-Q SCH (09:47)
[2019-07-25] MEDS: FLUoxetine 10 MG TAB PO SCH (09:48)
--- NOTE | 2019-07-25 09:58 | Progress Note ---
Assessment and Plan Assessment and plan: Drug overdose/suicide attempt Start IV fluids, Completed Mucomyst infusion Poison control was contacted Monitor Tylenol level, PT/INR Consulted psych, following. Patient is 1013 status has 1:1 sitter Urinary tract infection Start Ceftin Stop IV Rocephin, follow culture Hypokalemia Repleted potassium level DVT prophylaxis She is currently awake,,alert, medically stable to discharge to Psych facility 07/24/2019 Patient with suicidal attempt by drug overdose. She is medically stable for discharge to inpatient Psych 07/25/2019 Patient with suicidal attempt by drug overdose. She is now medically stable for discharge to inpatient Psych. History Interval history: patient presented with suicidal attempt by drug overdose On 1012 suicidal watch Hospitalist Physical - Physical exam Narrative exam: GEN: Not in acute distress, lying in bed HEENT: Normocephalic, atraumatic, Neck: supple, No JVD Lungs: Clear, no crackles, no wheeze heart;S1 and S2 reg, no murmurs, rubs or gallop Abd:soft, non tender, non distended, normal bowel sounds, Ext: No edema, no clubbing, no cyanosis, Neuro: Awake,alert,oriented X3 , no focal signs, Psych:calm,suicidal - Constitutional Vitals: Temp Pulse Resp BP Pulse Ox 99.0 F 78 18 105/65 99 07/25/19 08:09 07/25/19 08:09 07/25/19 08:09 07/25/19 08:09 07/25/19 08:09 Results - Labs CBC & Chem 7: 07/22/19 23:02 07/22/19 23:02 Labs: Laboratory Last Values WBC 8.0 K/mm3 (4.5-11.0) 07/22/19 23:02 RBC 4.01 M/mm3 (3.65-5.03) 07/22/19 23:02 Hgb 11.4 gm/dl (10.1-14.3) 07/22/19 23:02 Hct 34.9 % (30.3-42.9) 07/22/19 23:02 MCV 87 fl (79-97) 07/22/19 23:02 MCH 28 pg (28-32) 07/22/19 23:02 MCHC 33 % (30-34) 07/22/19 23:02 RDW 14.7 % (13.2-15.2) 07/22/19 23:02 Plt Count 314 K/mm3 (140-440) 07/22/19 23:02 Lymph % (Auto) 15.5 % (13.4-35.0) 07/22/19 03:47 [place] % (Auto) 6.9 % (0.0-7.3) 07/22/19 03:47 Eos % (Auto) 0.3 % (0.0-4.3) 07/22/19 03:47 Baso % (Auto) 0.3 % (0.0-1.8) 07/22/19 03:47 Lymph # 1.3 K/mm3 (1.2-5.4) 07/22/19 03:47 [place] # 0.6 K/mm3 (0.0-0.8) 07/22/19 03:47 Eos # 0.0 K/mm3 (0.0-0.4) 07/22/19 03:47 Baso # 0.0 K/mm3 (0.0-0.1) 07/22/19 03:47 Seg Neutrophils % 77.0 % (40.0-70.0) H 07/22/19 03:47 Seg Neutrophils # 6.5 K/mm3 (1.8-7.7) 07/22/19 03:47 PT 14.8 Sec. (12.2-14.9) 07/22/19 23:02 INR 1.18 (0.87-1.13) H 07/22/19 23:02 APTT 23.3 Sec. (24.2-36.6) L 07/22/19 23:02 Sodium 140 mmol/L (137-145) 07/22/19 23:02 Potassium 4.5 mmol/L (3.6-5.0) 07/22/19 23:02 Chloride 103.5 mmol/L (98-107) 07/22/19 23:02 Carbon Dioxide 24 mmol/L (22-30) 07/22/19 23:02 Anion Gap 17 mmol/L 07/22/19 23:02 BUN 10 mg/dL (7-17) 07/22/19 23:02 Creatinine 0.7 mg/dL (0.7-1.2) 07/22/19 23:02 Estimated GFR > 60 ml/min 07/22/19 23:02 BUN/Creatinine Ratio 14 % 07/22/19 23:02 Glucose 101 mg/dL (65-100) H 07/22/19 23:02 POC Glucose 108 (70-105) H 07/22/19 18:04 Calcium 9.0 mg/dL (8.4-10.2) 07/22/19 23:02 Total Bilirubin 0.20 mg/dL (0.1-1.2) 07/22/19 23:02 Direct Bilirubin < 0.2 mg/dL (0-0.2) 07/22/19 13:34 Indirect Bilirubin 0.1 mg/dL 07/22/19 13:34 AST 11 units/L (5-40) 07/22/19 23:02 ALT 12 units/L (7-56) 07/22/19 23:02 Alkaline Phosphatase 42 units/L (35-129) 07/22/19 23:02 Lactate Dehydrogenase 160 units/L (91-180) 07/22/19 13:34 Total Protein 6.6 g/dL (6.3-8.2) 07/22/19 23:02 Albumin 4.0 g/dL (3.9-5) 07/22/19 23:02 Albumin/Globulin Ratio 1.5 % 07/22/19 23:02 TSH 1.120 mlU/mL (0.270-4.200) 07/22/19 00:30 HCG, Qual Negative (Negative) 07/22/19 00:30 Urine Color Yellow (Yellow) 07/22/19 00:31 Urine Turbidity Clear (Clear) 07/22/19 00:31 Urine pH 5.0 (5.0-7.0) 07/22/19 00:31 Ur Specific [place] 1.042 (1.003-1.030) H 07/22/19 00:31 Urine Protein 30 mg/dl mg/dL (Negative) 07/22/19 00:31 Urine Glucose (UA) Neg mg/dL (Negative) 07/22/19 00: Urine Ketones Tr mg/dL (Negative) 07/22/19 00:31 Urine Blood Neg (Negative) 07/22/19 00:31 Urine Nitrite Neg (Negative) 07/22/19 00: Urine Bilirubin Mod (Negative) 07/22/19 00:31 Urine Ictotest Negative (Negative) 07/22/19 00:31 Urine Urobilinogen < 2.0 mg/dL (<2.0) 07/22/19 00:31 Ur Leukocyte Esterase Mod (Negative) 07/22/19 00:31 Urine WBC (Auto) 30.0 /HPF (0.0-6.0) H 07/22/19 00:31 Urine RBC (Auto) 7.0 /HPF (0.0-6.0) 07/22/19 00:31 U Epithel Cells (Auto) 7.0 /HPF (0-13.0) 07/22/19 00: Urine Mucus 3+ /HPF 07/22/19 00:31 Salicylates < 0.3 mg/dL (2.8-20.0) L 07/22/19 00:30 Urine Opiates Screen Presumptive negative 07/22/19 00:31 Urine Methadone Screen Presumptive negative 07/22/19 00:31 Acetaminophen < 5.0 ug/mL (10.0-30.0) L 07/22/19 23:02 Ur Barbiturates Screen Presumptive negative 07/22/19 00:31 Ur Phencyclidine Scrn Presumptive negative 07/22/19 00:31 Ur Amphetamines Screen Presumptive positive 07/22/19 00:31 U Benzodiazepines Scrn Presumptive negative 07/22/19 00:31 Urine Cocaine Screen Presumptive negative 07/22/19 00:31 U Marijuana (THC) Screen Presumptive positive 07/22/19 00:31 Drugs of Abuse Note Disclamer 07/22/19 00:31 Plasma/Serum Alcohol < 0.01 % (0-0.07) 07/22/19 00:30 Microbiology: Microbiology 07/22/19 00:31 Urine,Clean Catch Urine Culture - Final Hartmann/IV: Voiding Method Toilet IV Catheter Type [Right INT / Saline Lock Forearm] IV Catheter Type [Left Hand] INT / Saline Lock Active Medications - Current Medications Current Medications: Generic Name Dose Route Start Last Admin Trade Name Freq PRN Reason Stop Dose Admin Acetaminophen 650 mg 07/22/19 03:05 Tylenol PO Q4H PRN Pain MILD(1-3)/Fever >100.5/CHARLES Cefuroxime Axetil 500 mg 07/23/19 22:00 07/25/19 09:48 Ceftin PO 07/28/19 21:59 500 mg Q12HR MICHAEL Administration Enoxaparin Sodium 40 mg 07/22/19 10:00 07/25/19 09:47 Enoxaparin SUB-Q 40 mg QDAY@1000 MICHAEL Administration Fluoxetine HCl 10 mg 07/24/19 10:00 07/25/19 09:48 Prozac PO 10 mg QDAY MICHAEL Administration Ondansetron HCl 4 mg 07/22/19 03:05 Zofran IV Q8H PRN Nausea And Vomiting Quetiapine Fumarate 50 mg 07/23/19 22:00 07/24/19 22:40 Seroquel PO 50 mg QHS MICHAEL Administration Sodium Chloride 10 ml 07/22/19 10:00 07/25/19 09:49 Sodium Chloride Flush Syringe 10 Ml IV 10 ml BID MICHAEL Administration Sodium Chloride 10 ml 07/22/19 03:05 Sodium Chloride Flush Syringe 10 Ml IV PRN PRN LINE FLUSH
--- NOTE | 2019-07-25 10:22 | Progress Note ---
Subjective - Reason for Consult Consult date: 07/25/19 Reason for consult: suicide attempts - Chief Complaint Chief complaint: The patient medical record was reviewed and the patient's progress was discussed with the nursing staff. During my interview with the patient this morning, she is sitting up in bed. She is a/o x 3. She makes fair contact. A sitter is at bedside. The patient describes her mood as "disgruntle and depressed." She says, "I want to talk to my grandma." The patient states, "I don't want to live. That's probably not going to change," when asked about thoughts of self harm. She denies hallucinations of any kind. She denies any problems with her appetite or sleep cycle. REVIEW OF SYSTEMS Constitutional: Negative for weight loss ENT: Negative for stridor Respiratory: Negative for cough or hemoptysis All other systems reviewed and are negative MENTAL STATUS EXAMINATION General Appearance: Dressed appropriately Behavior: Calm, cooperative. Fair eye contact Mood: "depressed" Affect: Restricted Speech: Normal tone and pace Thought Process: Goal directed Thought Content: Suicidal Ideation: Yes, passive Homicidal Ideation: Denies Hallucinations: Denies Delusions: Denies Insight and Judgment: Limited Memory/Cognition: Limited Assessment Major Depressive Disorder, Severe, w/o Psychotic Features MEDICATIONS: Increased Prozac 20mg po daily Risks, benefits and alternatives of medications discussed with the patient, questions answered and consent obtained from patient. PSYCHOTHERAPY: Supportive psychotherapy provided MEDICAL: Per primary team DELIRIUM PRECAUTIONS: Please re-orient patient frequently, keep lights on during the day, and minimize benzodiazepines and opiates as these medications could worsen patient's confusion. BEER MERCHANT: Per Medical Team DISPOSITION: The patient meets the requirement for acute inpatient psychiatric treatment. She may transfer to an acute psychiatric facility once medically cleared. The plan was discussed with the patient, including medication benefits and possible side effects. she verbalized agreement and understanding Will continue to follow until the patient is improved enough for discharge or transferred. Thank you for the consult. Please contact with any questions and/or concerns. Mental Status Exam - Vital signs Last Vital Signs Temp 99.0 F 07/25/19 08:09 Pulse 78 07/25/19 08:09 Resp 18 07/25/19 08:09 BP 105/65 07/25/19 08:09 Pulse Ox 99 07/25/19 08:09
[2019-07-25] MEDS ORDERED: FLUoxetine 20 MG CAP PO SCH (11:00)
[2019-07-25] MEDS ORDERED: FLUoxetine 10 MG TAB PO ONE (16:00)
[2019-07-25] MEDS: QUEtiapine 25 MG TAB PO SCH (21:08)
--- NOTE | 2019-07-26 08:12 | Discharge Summary ---
Providers - Providers Date of Admission: 07/22/19 03:05 Attending physician: COURTNEY HULL MD 07/22/19 03:22 psychiatry consult [Consult to Mental Health] [CONS] Routine Reason For Exam: SUIcide attempt 07/22/19 15:43 Consult to Mental Health [CONS] Routine Reason For Exam: suicidal Primary care physician: DENTAL LABORATORY ASSISTANT Hospitalization Reason for admission: Suicidal ideation Condition: Fair Hospital course: 19-year-old woman with no medical problem comes emergency room for evaluation. He states that she took several different pills in an attempt to kill herself because there is nothing worth living for. She took 20 tablets of 250 mg Aleve, 20 tablets of 500 mg ibuprofen, half a bottle of NyQuil, a handful of comet, unknown amount of insulin and she slit her wrist. Patient stated that she wanted to kill herself since March, however she met a friend and they decided that they were going to be roommates inand move in together in July. However she found out today that her boyfriend did not want to move in together and she subsequently took oral globe pills between 7 to5 PM. Patient will be admitted for drug overdose, suicide attempt Patient was treated as noted below. Patient was also seen by psychiatry who following evaluation and discussion about medication compliance made some adjustment to the medication discontinuing Prozac and starting the patient on Depakote and Seroquel. Patient was willing to going to contractual for care and safety. At this point reports that she is not suicidal and is looking forward to going back to work. She is currently awake,,alert, medically stable to discharge to Psych facility 07/24/2019 Patient with suicidal attempt by drug overdose. She is medically stable for discharge to inpatient Psych 07/25/2019 Patient with suicidal attempt by drug overdose. She is now medically stable for discharge to inpatient Psych. 07/25: Remains clinically stable, No new complaints. Cleared from Medicine for discharge. She will follow with psychiatry outpatient Today 07/26 the patient is cleared by psych and is discharged home. Drug overdose/suicide attempt Urinary tract infection Hypokalemia Disposition: -01 TO HOME OR SELFCARE Time spent for discharge: 35 minutes Core Measure Documentation - Palliative Care Palliative Care/ Comfort Measures: Not Applicable - Core Measures Any of the following diagnoses?: none Exam - Physical Exam Narrative exam: VITAL SIGNS: Reviewed. GENERAL: The patient appears normally developed, Vital signs as documented. HEAD: No signs of head trauma. EYES: Pupils are equal. Extraocular motions intact. EARS: Hearing grossly intact. MOUTH: Oropharynx is normal. NECK: No adenopathy, no JVD. CHEST: Chest with clear breath sounds bilaterally. No wheezes, rales, or rhonchi. CARDIAC: Regular rate and rhythm. S1 and S2, without murmurs, gallops, or rubs. VASCULAR: No Edema. Peripheral pulses normal and equal in all extremities. ABDOMEN: Soft, non tender and non distended. No rebound or guarding, and no masses palpated. Bowel Sounds normal. MUSCULOSKELETAL: Good range of motion of all major joints. Extremities without clubbing, cyanosis or edema. NEUROLOGIC EXAM: Alert and oriented x 3 No focal sensory or strength deficits. Speech normal. Follows commands. PSYCHIATRIC: Mood normal. SKIN: detial exam as documented in skin assessment - Constitutional Vitals: Temp Pulse Resp BP Pulse Ox 98.4 F 60 14 106/60 98 07/26/19 03:59 07/26/19 03:59 07/26/19 03:59 07/26/19 03:59 07/26/19 03:59 Plan Activity: advance as tolerated, fall precautions Diet: low fat Additional Instructions: FOLLOW UP PER INPATIENT PSYCH TEAM Follow up with: PRIMARY CARE, [Primary Care Provider] - 7 Days [facility] [Outside] - 7 Days Forms: Work/School Release Form Prescriptions: Quetiapine Fumarate [SEROquel] 50 mg PO QHS #[address] [DepaKOTE DR] 125 mg PO BID #60 tablet
[2019-07-26] MEDS: ENOXAPARIN 40 MG/0.4 ML INJ SUB-Q SCH (09:09)
[2019-07-26] MEDS ORDERED: FLUoxetine 20 MG CAP PO SCH (10:00)
--- NOTE | 2019-07-26 10:16 | Progress Note ---
Subjective - Reason for Consult Consult date: 07/26/19 Reason for consult: Overdose - Chief Complaint Chief complaint: The patient medical record was reviewed and the patient's progress was discussed with the nursing staff. During my interview with the patient this morning, she is sitting up in bed. She is a/o x 3. She makes good eye contact. Sitter is at bedside. The patient states she "slept pretty good." She says her mood is "okay." The patient tells me "antidepressants make me feel numb." She's requesting for me to discontinue the prozac. She denies SI/HI, but states, "jumping into the real world with no resolution makes me panicky." She then says, "I'd probably end up back here if went home." The patient denies hallucinations of any kind. REVIEW OF SYSTEMS Constitutional: Negative for weight loss ENT: Negative for stridor Respiratory: Negative for cough or hemoptysis All other systems reviewed and are negative MENTAL STATUS EXAMINATION General Appearance: Dressed appropriately Behavior: Calm, cooperative. good eye contact Mood: "okay" Affect: Restricted Speech: Normal tone and pace Thought Process: Goal directed Thought Content: Suicidal Ideation: Yes, passive Homicidal Ideation: Denies Hallucinations: Denies Delusions: Denies Insight and Judgment: Limited Memory/Cognition: Limited Assessment Major Depressive Disorder, Severe, w/o Psychotic Features MEDICATIONS: Discontinue Prozac 20mg po daily Depakote DR 125mg po BID to improve mood Risks, benefits and alternatives of medications discussed with the patient, questions answered and consent obtained from patient. PSYCHOTHERAPY: Supportive psychotherapy provided MEDICAL: Per primary team DELIRIUM PRECAUTIONS: Please re-orient patient frequently, keep lights on during the day, and minimize benzodiazepines and opiates as these medications could worsen patient's confusion. 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 She may transfer to an acute psychiatric facility once medically cleared. The plan was discussed with the patient, including medication benefits and possible side effects. she verbalized agreement and understanding Will continue to follow until the patient is improved enough for discharge or transferred. Thank you for the consult. Please contact with any questions and/or concerns. Mental Status Exam - Vital signs Last Vital Signs Temp 98.4 F 07/26/19 03:59 Pulse 60 05/26/20 03:59 Resp 14 07/26/19 03:59 BP 106/60 07/26/19 03:59 Pulse Ox 98 07/26/19 03:59
[2019-07-26] MEDS: QUEtiapine 25 MG TAB PO SCH (22:32)
[2019-07-26] MEDS: DIVALPROEX DR 125 MG TAB PO SCH (22:32)
--- NOTE | 2019-07-27 09:22 | Progress Note ---
Subjective - Reason for Consult Consult date: 07/27/19 Reason for consult: SI - Chief Complaint Chief complaint: The patient medical record was reviewed and the patient's progress was discussed with the nursing staff. During my interview with the patient this morning, she is asleep. She is oriented x 3. She makes good eye contact. Sitter is at bedside. The patient states, she she slept "good." She describes her mood as "good." The patient denies SI/HI or any feelings of endangerment. She states, "I just always worry about living with my grandmother forever, losing my job, paying my bills." She then says but "I'm not worried that I'll do something to myself." She denies hallucinations of any kind. The patient denies any problems with her sleep or appetite. REVIEW OF SYSTEMS Constitutional: Negative for weight loss ENT: Negative for stridor Respiratory: Negative for cough or hemoptysis All other systems reviewed and are negative MENTAL STATUS EXAMINATION General Appearance: Dressed appropriately Behavior: Calm, cooperative. good eye contact Mood: "good" Affect: Congruent with stated mood Speech: Normal tone and pace Thought Process: Goal directed Thought Content: Suicidal Ideation: Denies Homicidal Ideation: Denies Hallucinations: Denies Delusions: Denies Insight and Judgment: Limited Memory/Cognition: Limited Assessment Major Depressive Disorder, Severe, w/o Psychotic Features Recommendations Discontinue 1013 MEDICATIONS: Seroquel 50mg qhs Depakote DR 125mg po BID to improve mood Risks, benefits and alternatives of medications discussed with the patient, questions answered and consent obtained from patient. PSYCHOTHERAPY: Supportive psychotherapy provided MEDICAL: Per primary team DELIRIUM PRECAUTIONS: Please re-orient patient frequently, keep lights on during the day, and minimize benzodiazepines and opiates as these medications could worsen patient's confusion. 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 She may discharge home once medically cleared. The patient understands that if suicidal thoughts or feelings of endangerment are to arise she is to seek immediate assistance, including but not limited to the crisis hotline, 911 and/or ER The beader is to further discuss safety plan, and give the patient resources for outpatient psychiatry and therapy/counseling services. The patient is to follow up with outpatient psychiatry or primary in 7 to 14 days upon discharge. The plan was discussed with the patient, including medication benefits and possible side effects. she verbalized agreement and understanding Will sign off. Thank you for the consult. Please contact with any questions and/or concerns. Mental Status Exam - Vital signs Last Vital Signs Temp 98.1 F 07/27/19 04:05 Pulse 59 L 07/27/19 04:05 Resp 20 07/27/19 04:05 BP 100/58 07/27/19 04:05 Pulse Ox 99 07/27/19 04:05
[2019-07-27] MEDS: DIVALPROEX DR 125 MG TAB PO SCH (09:37)
[2019-07-27] MEDS: ENOXAPARIN 40 MG/0.4 ML INJ SUB-Q SCH (09:37)
--- NOTE | 2019-07-27 10:45 | Progress Note ---
Assessment and Plan Assessment and plan: Drug overdose/suicide attempt Start IV fluids, Completed Mucomyst infusion Poison control was contacted Monitor Tylenol level, PT/INR Consulted psych, following. Patient is 1013 status has 1:1 sitter Urinary tract infection Start Ceftin Stop IV Rocephin, follow culture Hypokalemia Repleted potassium level DVT prophylaxis She is currently awake,,alert, medically stable to discharge to Psych facility 07/24/2019 Patient with suicidal attempt by drug overdose. She is medically stable for discharge to inpatient Psych 07/25/2019 Patient with suicidal attempt by drug overdose. She is now medically stable for discharge to inpatient Psych. 07/25: Remains clinically stable, No new complaints. Cleared from Medicine for discharge. History Interval history: patient seen and examined, staying comfortable, no new complaints. Hospitalist Physical - Physical exam Narrative exam: VITAL SIGNS: Reviewed. GENERAL: The patient appears normally developed, Vital signs as documented. HEAD: No signs of head trauma. EYES: Pupils are equal. Extraocular motions intact. EARS: Hearing grossly intact. MOUTH: Oropharynx is normal. NECK: No adenopathy, no JVD. CHEST: Chest with clear breath sounds bilaterally. No wheezes, rales, or rhonchi. CARDIAC: Regular rate and rhythm. S1 and S2, without murmurs, gallops, or rubs. VASCULAR: No Edema. Peripheral pulses normal and equal in all extremities. ABDOMEN: Soft, non tender and non distended. No rebound or guarding, and no masses palpated. Bowel Sounds normal. MUSCULOSKELETAL: Good range of motion of all major joints. Extremities without clubbing, cyanosis or edema. NEUROLOGIC EXAM: Alert and oriented x 3 No focal sensory or strength deficits. Speech normal. Follows commands. PSYCHIATRIC: Mood normal. SKIN: detial exam as documented in skin assessment - Constitutional Vitals: Temp Pulse Resp BP Pulse Ox 98.1 F 59 L 20 100/58 99 07/27/19 04:05 07/27/19 04:05 07/27/19 04:05 07/27/19 04:05 07/27/19 04:05 Results - Labs CBC & Chem 7: 07/22/19 23:02 07/22/19 23:02 Labs: Laboratory Last Values WBC 8.0 K/mm3 (4.5-11.0) 07/22/19 23:02 RBC 4.01 M/mm3 (3.65-5.03) 07/22/19 23:02 Hgb 11.4 gm/dl (10.1-14.3) 07/22/19 23:02 Hct 34.9 % (30.3-42.9) 07/22/19 23:02 MCV 87 fl (79-97) 07/22/19 23:02 MCH 28 pg (28-32) 07/22/19 23:02 MCHC 33 % (30-34) 07/22/19 23:02 RDW 14.7 % (13.2-15.2) 07/22/19 23:02 Plt Count 314 K/mm3 (140-440) 07/22/19 23:02 Lymph % (Auto) 15.5 % (13.4-35.0) 07/22/19 03:47 [place] % (Auto) 6.9 % (0.0-7.3) 07/22/19 03:47 Eos % (Auto) 0.3 % (0.0-4.3) 07/22/19 03:47 Baso % (Auto) 0.3 % (0.0-1.8) 07/22/19 03:47 Lymph # 1.3 K/mm3 (1.2-5.4) 07/22/19 03:47 [place] # 0.6 K/mm3 (0.0-0.8) 07/22/19 03:47 Eos # 0.0 K/mm3 (0.0-0.4) 07/22/19 03:47 Baso # 0.0 K/mm3 (0.0-0.1) 07/22/19 03:47 Seg Neutrophils % 77.0 % (40.0-70.0) H 07/22/19 03:47 Seg Neutrophils # 6.5 K/mm3 (1.8-7.7) 07/22/19 03:47 PT 14.8 Sec. (12.2-14.9) 07/22/19 23:02 INR 1.18 (0.87-1.13) H 07/22/19 23:02 APTT 23.3 Sec. (24.2-36.6) L 07/22/19 23:02 Sodium 140 mmol/L (137-145) 07/22/19 23:02 Potassium 4.5 mmol/L (3.6-5.0) 07/22/19 23:02 Chloride 103.5 mmol/L (98-107) 07/22/19 23:02 Carbon Dioxide 24 mmol/L (22-30) 07/22/19 23:02 Anion Gap 17 mmol/L 07/22/19 23:02 BUN 10 mg/dL (7-17) 07/22/19 23:02 Creatinine 0.7 mg/dL (0.7-1.2) 07/22/19 23:02 Estimated GFR > 60 ml/min 07/22/19 23:02 BUN/Creatinine Ratio 14 % 07/22/19 23:02 Glucose 101 mg/dL (65-100) H 07/22/19 23:02 POC Glucose 108 (70-105) H 07/22/19 18:04 Calcium 9.0 mg/dL (8.4-10.2) 07/22/19 23:02 Total Bilirubin 0.20 mg/dL (0.1-1.2) 07/22/19 23:02 Direct Bilirubin < 0.2 mg/dL (0-0.2) 07/22/19 13:34 Indirect Bilirubin 0.1 mg/dL 07/22/19 13:34 AST 11 units/L (5-40) 07/22/19 23:02 ALT 12 units/L (7-56) 07/22/19 23:02 Alkaline Phosphatase 42 units/L (35-129) 07/22/19 23:02 Lactate Dehydrogenase 160 units/L (91-180) 07/22/19 13:34 Total Protein 6.6 g/dL (6.3-8.2) 07/22/19 23:02 Albumin 4.0 g/dL (3.9-5) 07/22/19 23:02 Albumin/Globulin Ratio 1.5 % 07/22/19 23:02 TSH 1.120 mlU/mL (0.270-4.200) 07/22/19 00:30 HCG, Qual Negative (Negative) 07/22/19 00:30 Urine Color Yellow (Yellow) 07/22/19 00:31 Urine Turbidity Clear (Clear) 07/22/19 00:31 Urine pH 5.0 (5.0-7.0) 07/22/19 00:31 Ur Specific [place] 1.042 (1.003-1.030) H 07/22/19: Urine Protein 30 mg/dl mg/dL (Negative) 07/22/19: Urine Glucose (UA) Neg mg/dL (Negative) 07/22/19: Urine Ketones Tr mg/dL (Negative) 07/22/19: Urine Blood Neg (Negative) 07/22/19: Urine Nitrite Neg (Negative) 07/22/19 Urine Bilirubin Mod (Negative) 07/22/19: Urine Ictotest Negative (Negative) 07/22/19: Urine Urobilinogen < 2.0 mg/dL (<2.0) 07/22/19: Ur Leukocyte Esterase Mod (Negative) 07/22/19: Urine WBC (Auto) 30.0 /HPF (0.0-6.0) H 07/22/19: Urine RBC (Auto) 7.0 /HPF (0.0-6.0) 07/22/19: U Epithel Cells (Auto) 7.0 /HPF (0-13.0) 07/22/19: Urine Mucus 3+ /HPF 07/22/19: Salicylates < 0.3 mg/dL (2.8-20.0) L 07/22/19 00:30 Urine Opiates Screen Presumptive negative 07/22/19: Urine Methadone Screen Presumptive negative 07/22/19: Acetaminophen < 5.0 ug/mL (10.0-30.0) L 07/22/19 23:02 Ur Barbiturates Screen Presumptive negative 07/22/19: Ur Phencyclidine Scrn Presumptive negative 07/22/19: Ur Amphetamines Screen Presumptive positive 07/22/19: U Benzodiazepines Scrn Presumptive negative 07/22/19: Urine Cocaine Screen Presumptive negative 07/22/19: U Marijuana (THC) Screen Presumptive positive 07/22/19: Drugs of Abuse Note Disclamer 07/22/19: Plasma/Serum Alcohol < 0.01 % (0-0.07) 07/22/19 00:30 Hartmann/IV: Voiding Method Toilet IV Catheter Type [Right INT / Saline Lock Forearm] IV Catheter Type [Left Hand] INT / Saline Lock Active Medications - Current Medications Current Medications: Generic Name Dose Route Start Last Admin Trade Name Freq PRN Reason Stop Dose Admin Acetaminophen 650 mg 07/22/19 03:05 Tylenol PO Q4H PRN Pain MILD(1-3)/Fever >100.5/CHARLES Cefuroxime Axetil 500 mg 07/23/19 22:00 07/26/19 22:33 Ceftin PO 07/28/19 21:59 500 mg Q12HR MICHAEL Administration Divalproex Sodium 125 mg 07/26/19 22:00 07/27/19 09:[address] PO 125 mg BID MICHAEL Administration Enoxaparin Sodium 40 mg 07/22/19 10:00 07/27/19 09:37 Enoxaparin SUB-Q 40 mg QDAY@1000 MICHAEL Administration Ondansetron HCl 4 mg 07/22/19 03:05 Zofran IV Q8H PRN Nausea And Vomiting Quetiapine Fumarate 50 mg 07/23/19 22:00 07/26/19 22:32 Seroquel PO 50 mg QHS MICHAEL Administration Sodium Chloride 10 ml 07/22/19 10:00 07/27/19 09:37 Sodium Chloride Flush Syringe 10 Ml IV 10 ml BID MICHAEL Administration Sodium Chloride 10 ml 07/22/19 03:05 Sodium Chloride Flush Syringe 10 Ml IV PRN PRN LINE FLUSH
[2019-07-27 13:49] VITALS: BP 115/76
== END 2019-07-27 15:33 | disposition home or self-care (01) | DRG 918 ==
LOC: SUATTDRO 23:54 → ED 23:54 → 4A 07-22 03:05 → ED 07-22 08:12 → 4A 07-22 08:12
PROVIDERS: ADMIT Internal Medicine; ATTEND Internal Medicine
DX: T39.1X2A Poisoning by 4-Aminophenol derivatives, intentional self-harm, initial encounter (principal); N30.01 Acute cystitis with hematuria; F32.2 Major depressive disorder, single episode, severe without psychotic features; T14.91XA Suicide attempt, initial encounter; X78.9XXA Intentional self-harm by unspecified sharp object, initial encounter; F15.10 Other stimulant abuse, uncomplicated; E87.6 Hypokalemia; Z82.49 Family history of ischemic heart disease and other diseases of the circulatory system
CPT/HCPCS: 36415; 80048; 80053; 80076; 80307; 80320; 81001; 82962; 83615; 84443; 84703; 85025; 85027; 85610; 85730; 87086; 90686; 93005; G0378; G0480; J0132; J0696; J1650; J7030; J7060; J7070